=== PATIENT | female | born 1980 | race Caucasian/White ===

== ENCOUNTER → 2016-12-08 | Day surgery (SDC) | payer BC, MEDICAID ==
[~2016-12-08] MED LIST: BACITRACIN 50,000 UNITS VIAL ONE; BUPIVACAINE 0.25%-EPINEPHRINE 1:200,000 30 ML ONE; CEFAZOLIN 1 GM VIAL ONE; CONJUGATED ESTROGENS PV ONE; DEXAMETHASONE 4 MG/ML VIAL IV ONE; FENTANYL 100 MCG/2 ML VIAL IV PRN; FENTANYL 250 MCG/5 ML VIAL IV ONE; GENTAMICIN IV ONE; HYDROmorphone 1 MG INJECTION IV PRN; KETOROLAC TROMETH 30 MG/ML VIAL IM ONE; LABETALOL 20 MG/4 ML SYRINGE IV PRN; LIDOCAINE 100 MG PFS IV ONE; MEPERIDINE 25 MG/ML TUBEX IV PRN; METOCLOPRAMIDE 10 MG/2 ML VIAL IV ONE; MIDAZOLAM 2 MG/2 ML VIAL IV ONE; NS IV ONE; ONDANSETRON HCL 4 MG ODT TAB PO PRN; ONDANSETRON HCL 4 MG/2 ML VIAL IV ONE; ONDANSETRON HCL 4 MG/2 ML VIAL IV PRN; PROPOFOL 200 MG/20 ML VIAL IV ONE; SUCCINYLCHOLINE 20 MG/1 ML INJ 10 ML MDV IV ONE; hydrALAZINE 20 MG/ML VIAL IV PRN
[2016-12-08 10:11] LABS: AUTOMATED BASOPHIL 0.6 % (0-2); AUTOMATED EOSINOPHIL 2.1 % (0-5); AUTOMATED LYMPH 43.6 % (17-44); AUTOMATED MONOCYTE 7.6 % (3-10); AUTOMATED NEUTROPHIL 46.1 % (45-76)
[2016-12-08 10:25] LABS: BLOOD UREA NITROGEN 8 MG/DL (7-17); CALCIUM 8.9 MG/DL (8.4-10.2); CALCULATED OSMOLALITY 261 MOs/Kg (270-290); CHLORIDE 103 mEq/L (98-107); GLUCOSE 86 mg/dL (70-99); SODIUM LEVEL 137 mEq/L (137-146); TOTAL PROTEIN 7.2 G/DL (6.3-8.2)
--- NOTE | 2016-12-08 10:39 | HIM.ANES ---
Anesthesia Evaluation & Plan Diagnoses: STRESS INCONTINENCE (FEMALE) (MALE) (12/08/16) Consented Procedure: obtryx sling - Focused Review of Systems Cardiac History: Yes: Hx Hypertension HEENT: No: Loose/Decaying Teeth, Removable Dental Work, Other HEENT Problems Hx Other HEENT Surgery: wisdom teeth extraction Respiratory: Yes: Hx Snoring No: Hx Asthma Comment Only: Hx Sleep Apnea (??) Gastrointestinal: No: Hx Gastrointestinal Disorders Neurological/Musculoskeletal: No: HX Cerebrovascular Accident, Hx Neurological Disorders Psychological: Yes Hx Anxiety, Yes Hx Depression, Yes Hx Mental/Emotional Disorders, Yes Hx Bipolar Disorder Smoking Status: Heavy tobacco smoker (5 or more cigarettes/day or daily pipe/ cigar) Alcohol use: None Other Surgical History: wisdom teeth extraction D&C x 2 debridement of wound - Focused Physical Exam NPO since: 12/07/16 1800 Mallampati: Class II Thyromental Distance: Greater than 3 Neck: Full Range of Motion Dental: Normal - no significant findings Cardiovascular/Chest: Normal Respiratory: Lungs clear Any problems with anesthesia, including nausea and vomiting?: Yes (panic/ emotional upon waking up, crying) Any relatives with a history of Malignant Hyperthermia?: No Does patient have a history of Malignant Hyperthermia?: No Beta Lakshmi given (if appropriate): N/A Does the patient have a history of Motion Sickness-: No Other: PT/PTT/INR/ Urine Test Neg (NEGATIVE) 12/08/16 09:40 CBC/BMP/Other 12/08/16 10:01 12/08/16 10:01 Allergies Allergy/AdvReac Type Severity Reaction Status Date / Time No Known Allergies Allergy Verified 12/08/16 10:05 Home Medications Medication Instructions Recorded Last Taken Type Aripiprazole [Abilify] 10 mg PO DAILY 12/08/16 12/07/16 History Cephalexin 500 mg PO BID 12/08/16 12/07/16 History Clonazepam 1 mg PO BID PRN 12/08/16 12/07/16 History Lisdexamfetamine Dimesylate 70 mg PO DAILY 12/08/16 2 Weeks Ago History [Vyvanse] Lisinopril 10 mg PO DAILY 12/08/16 12/06/16 History Venlafaxine HCl [Effexor] 75 mg PO DAILY 02/02/17 02/01/17 History Height and Weight Patient's height 5 ft 4 in Patient's weight 74.843 kg Vital Signs Temperature 97.5 F 12/08/16 10:10 Pulse Rate 88 12/08/16 10:10 Respiratory Rate 16 12/08/16 10:10 Blood Pressure 125/86 12/08/16 10:10 Pulse Oxygen Saturation 97 12/08/16 10:10 METS - Level of Activity: Swimming, singles tennis, football)MET: metabolic equivalent - Anesthetic Plan Anesthesia Type: General ASA Class: 2 -: I have examined this patient and reviewed the medical record. The patient has been assessed prior to anesthesia. Risks and benefits of anesthesia and anesthetic technique options have been discussed and all questions answered. The patient accepts the risk and desires me to proceed with the planned anesthetic.
[2016-12-08 12:18] VITALS: TEMP 98.4
--- NOTE | 2016-12-08 13:20 | HIMOPRPT ---
DATE OF PROCEDURE: 12/08/16 PREOPERATIVE DIAGNOSIS: [Stress urinary incontinence]. POSTOPERATIVE DIAGNOSIS: [Stress urinary incontinence]. PROCEDURE PERFORMED: Transobturator mid urethral sling placement, Obtryx system.. ANESTHESIA: [General by endotracheal tube]. ANESTHESIOLOGIST: Helen SURGEON: Hiro Thomas MD PROCEDURE IN DETAIL: The patient was brought to the operating room and general anesthesia by endotracheal tube was given. Once adequate level of anesthesia was obtained, the patient was placed in the [lithotomy] position and the lower abdominal wall, external genitalia, and vagina was prepped and draped in the usual sterile manner. Two be were placed, 1 on either side lateral to the inferior ramus at the level of clitoris and labia minora and majora were retracted laterally by stitching them to the medial aspect of the thigh. A weighted speculum was placed to retract the posterior vaginal wall. No abnormality in the vagina was noted. Vaginal mucosa was good, healthy looking. A Robison catheter was placed to drain the bladder and left indwelling. The balloon of the Robison catheter was palpated through the anterior vaginal wall to determine the site of the bladder neck, which was marked with a marker. Subsequently, the premarked sites on lateral aspect of the inferior rami were infiltrated with 0.25% plain Sensorcaine with some epinephrine and also the vaginal wall distal to the bladder neck was infiltrated with the same. Once adequate blanching was achieved, a midline incision was made about [1] centimeter posterior to the external meatus extending up to the bladder neck area and the vaginal mucosa was then dissected by blunt and sharp dissection laterally up to the angle between the anterior and the lateral vaginal wall. By doing that, I was able to feel the inferior ramus of the pubic bone on both sides. Stab wounds were made in the premarked sites lateral to the inferior rami and through the stab wound, a helical trocar was inserted 1st on the left side and guided into the vaginal wound through the anterior part of the obturator foramen. The Obtryx tape was anchored to the needle tip and the needle was pulled out to transfer the tape for on the left side. Similarly, it was done on the right side and the other end of the tape was pulled out as well. The tab on the tape holding the plastic sheathing was removed and the tape was pulled on both sides while right angle clamp was placed between the urethra and the tape to control the tension on the tape. Once the plastic sheathing was removed on both sides, the tape slightly sat in the mid urethra without compression of the urethra. Once satisfied, the vaginal wound was then closed with running 2-0 chromic catgut. Hemostasis was reasonably good. All through the procedure, copious amount of antibiotic solution containing the bacitracin and some gentamicin was instilled into the wound and irrigated thoroughly. Once the vaginal wound was closed, the vagina was then packed with Kerlix and some Premarin cream, and retraction sutures of the labia minora and majora were removed. The tape on either side was cut flush with the skin and the skin wound was sealed with Dermabond. Estimated blood loss was less than 15 cc. No complications during the procedure. The patient tolerated the procedure well and returned to recovery room in stable and satisfactory condition. Discharge Medications:[] oxycodone 5 mg p.o. q.4 hours p.r.n. 25 tablets were prescribed 2. Zofran 8 mg q.6 hours p.r.n. for nausea and vomiting. 3. Levaquin 500 mg daily for next 7 days patient has this medication at home. The vaginal packing will be removed in the recovery area once the patient is fully recovered from the anesthesia.. Follow-up: [The patient will be discharged home to be followed as an outpatient] .
[2016-12-08 15:07] VITALS: PULSE 89
[2016-12-08 15:41] VITALS: BP 112/70
--- NOTE | 2016-12-08 15:41 | SC.ANESPOS ---
Post-Anesthesia Note LOC: Fully Awake Post-Anesthesia Assessment: Awake, Returned to Baseline, Hemodynamically Stable , Pain Control Adequate Phase I & II Recovery Complete: Yes Apparent Anesthesia Complication: No : N - Vital Signs Blood Pressure: 112/70 Pulse: 89 Resp Rate: 18 O2 Sat: 98 Temp: 98.4 F
== END ==
LOC: SDC 09:27
PROVIDERS: ATTEND Urology
PROC: 0TSC0ZZ Reposition Bladder Neck, Open Approach (ICD-10-PCS; principal; 2016-12-08 10:45)
DX: N39.3 Stress incontinence (female) (male) (principal); I10 Essential (primary) hypertension; F41.9 Anxiety disorder, unspecified; F32.9 Major depressive disorder, single episode, unspecified; F17.210 Nicotine dependence, cigarettes, uncomplicated; Z79.899 Other long term (current) drug therapy
CPT/HCPCS: 57288; 80053; 81025; 85025; C1771; J0690; J1580; J3490; J7030; J0330; J1100; J1885; J2001; J2250; J2405; J2765; J3010